=== PATIENT | male | born 1975 | race Two or more races ===

== ENCOUNTER 2016-10-07 22:22 | Inpatient (IN) | payer MEDICAID, OTHER ==
[2016-10-07] MEDS ORDERED: IOPAMIDOL 370 (76%) 100 ML VIAL IV ONE (22:23)
[2016-10-08 00:37] LABS: ABSOLUTE NEUTROPHIL COUNT 6.8 K/mm3 (1.8-7.7); BASO % 0.4 % (0.2-1.0); EOS # 0.1 (0.0-0.5); EOS % 1.1 % (0.9-2.9); HEMATOCRIT 39.3 % (32.0-52.0); HEMOGLOBIN 13.7 gm/l (14.0-18.0); IMM NEUT% 0.3 % (0-1); LYMPH # 2.5 (1.0-4.8); LYMPH % 22.4 % (15-45); MEAN CORPUSCULAR HEMOGLOBIN 31.7 pg (27.0-31.0); MEAN CORPUSCULAR HGB CONC 34.9 g/dl (33.0-37.0); MEAN PLATELET VOLUME 9.1 fl (7.4-10.4); MONO # 1.7 (0.0-0.8); MONO % 15.4 % (4-12); NEUT % 60.4 % (43-75); PLATELET COUNT 260 K/mm3 (130-400); RED CELL DISTRIBUTION WIDTH 12.1 % (11.5-14.5)
[2016-10-08 00:40] LABS: SPECIFIC GRAVITY 1.025 (1.001-1.030); URINE BILIRUBIN NEGATIVE (NEGATIVE); URINE BLOOD TRACE (NEGATIVE); URINE GLUCOSE (UA) NEGATIVE (NEGATIVE); URINE LEUKOCYTE ESTERASE NEGATIVE (NEGATIVE); URINE NITRITE NEGATIVE (NEGATIVE); URINE PROTEIN 1+ (NEGATIVE); URINE UROBILINOGEN 1 mg/dL (0-1 mg/dl)
[2016-10-08 00:42] LABS: URINE APPEARANCE CLEAR; URINE COLOR DARK YELLOW
[2016-10-08 01:06] LABS: URINE BACTERIA 0; URINE EPITHELIAL CELLS 0-1 /hpf; URINE WBC 0-1 /hpf
[2016-10-08 01:08] LABS: ALB/GLOB RATIO 1.1 (>1.0); ALBUMIN 3.9 gm/dL (3.5-5.7); CALCIUM 8.7 mg/dL (8.6-10.3)
[2016-10-08] MEDS ORDERED: ONDANSETRON 4 MG/2ML 2 ML VIAL ONE (01:23)
[2016-10-08] MEDS ORDERED: ACETAMINOPHEN 500 MG TABLET ONE (02:23)
[2016-10-08] MEDS ORDERED: SODIUM CHLORIDE 0.9% 2,000 ML ONE (02:23)
[2016-10-08] MEDS ORDERED: SODIUM CL FOR INHALATION 3 ML DOSE ONE (02:34)
[2016-10-08] MEDS ORDERED: MAGNESIUM HYDROXIDE 30 ML UDCUP PO PRN (03:42)
[2016-10-08] MEDS ORDERED: ACETAMINOPHEN 325 MG TABLET PO PRN (03:42)
[2016-10-08] MEDS ORDERED: MENTHOL/CETYLPYRD 1 EACH LOZENGE PO PRN (03:42)
[2016-10-08] MEDS ORDERED: BLISTEX LIPSTICK 1 EACH TP PRN (03:42)
[2016-10-08] MEDS ORDERED: ALBUTEROL NEB 2.5 MG/3 ML VIAL.NEB NEB PRN (03:46)
[2016-10-08 03:48] VITALS: BMI 28.5
[2016-10-08] MEDS: GUAIFENESIN 600 MG TABLET.DR PO SCH ×2 (05:00→20:24)
[2016-10-08] MEDS ORDERED: FLU VACC 2016-17 (36MO-64Y)/PF 60 MCG/0.5 ML SYRINGE IM V ONE (09:00)
--- NOTE | 2016-10-08 09:42 | RAD ---
CHEST - 2 VIEWS COMPARISON: None. HISTORY: Cough for one months. Night sweats. No fever. No hemoptysis. Unknown if the patient has been exposed to tuberculosis. FINDINGS: Views: Frontal and lateral chest Lungs: Normal Heart and vessels: Normal Trachea and bronchi: Normal Mediastinum and manjit: Normal Costophrenic sulci: Normal Chest wall and bones: Normal. Upper abdomen: Surgical clips in the right upper quadrant IMPRESSION: Negative 2 view chest.
--- NOTE | 2016-10-08 10:20 | CT ---
CTA CHEST FOR PE COMPARISON: None HISTORY: Cough for one month. Night sweats. No fever. No hemoptysis. Technique: Intravenous injection 80 mL of Isovue-370. Using a [employer] [address] scanner, following a CT angiogram protocol, images obtained through the thorax. Under concurrent supervision and interpretation, not requiring a separate 3-D workstation, the technologist created 3-D CT angiograms. An automated dose reduction technique was used to minimize patient radiation dose. Dose information: CTDIvol (mGy): 7.70, 66.00, 17.10 DLP(mGycm): 669.00 FINDINGS: Pulmonary arteries and veins: Excellent contrast opacification. No pulmonary embolism. Aorta: Normal Heart and coronary arteries: Normal. Lungs: Minimal subsolid nodules in the lingula. Trachea and bronchi: Normal. Mediastinum and manjit: Normal. Pleura and pericardium: Normal. Chest wall: Normal. Spine: Normal. Upper abdomen:Normal. 3-D CT angiogram: Normal. IMPRESSION: No pulmonary embolism. Minimal subsolid nodules/inflammatory nodules in the lingula. Given the patient's history of a cough for one month and night sweats, evidence of pneumonia. Preliminary report by [facility] radiologist Dawood Rueda M.D. 10/08/2016 at 01:38
[2016-10-08] MEDS ORDERED: PUMP TUBING ONE (12:12)
[2016-10-08] MEDS: SODIUM CHLORIDE 0.9% 100 ML IV PRN (12:26)
[2016-10-08] MEDS: CEFTRIAXONE 1 GRAM DUPLEX 1 G in Premix (D5W) 50 ml 1 EACH IV SCH ×2 (12:26→14:10)
[2016-10-08] MEDS: AZITHROMYCIN 500 MG in SODIUM CHLORIDE 0.9% 250 ML IV SCH (12:44)
--- NOTE | 2016-10-08 13:57 | HP ---
IMAN ESPINOSA [id number] : 1975 DATE OF ADMISSION: October 08, 2016 IDENTIFICATION: Mr. Neal is a 41-year-old with no local physician. Dr. Vo is on emergency room backup call for unassigned patients on the day of admission. CHIEF COMPLAINT: Cough. HISTORY OF PRESENT ILLNESS: Patient reports dry cough for about a month. He is not bringing up sputum or blood but the cough has been very bothersome. He has also had night sweats and fevers. He has not had any weight loss that he is aware of. He was evaluated with a chest CT scan in the emergency department. This showed nodules in the lingula and patient was referred to the hospitalist service to rule out tuberculosis. REVIEW OF SYSTEMS: HEENT: Denies headache, lightheadedness or loss of consciousness. Denies problems with ears, eyes, nose or throat. RESPIRATORY: He has had cough but not really dyspnea. CARDIAC: No chest pain or palpitations. GASTROINTESTINAL: Some reflux, no nausea or vomiting, diarrhea, constipation hematochezia, or melena. GENITOURINARY: No symptoms. MUSCULOSKELETAL: Denies symptoms. CONSTITUTIONAL: Fevers and night sweats. No weight change. MEDICAL HISTORY: None. PAST SURGICAL HISTORY: 1. Appendectomy. 2. Cholecystectomy. ALLERGIES: NONE KNOWN. HOME MEDICATIONS: Not currently taking any prescription medications. HABITS: No tobacco, alcohol or drugs. SOCIAL HISTORY: He grew up in [place], moved to the [facility] in [place]. Lives with his parents in [facility]. He is single and currently unemployed. FAMILY HISTORY: He is not aware of any significant family history. No history that he knows of tuberculosis in family members. PHYSICAL EXAMINATION: GENERAL: This is a well-developed, well-nourished middle aged . He does have frequent dry cough. VITAL SIGNS: Temperature 98.4 degrees Fahrenheit, pulse 80, blood pressure 108/68, respiratory rate 18, oxygen saturation 95% on room air. HEENT: Pupils are equal, round and reactive. Extraocular muscles are intact. Oropharynx is moist. NECK: No adenopathy. CHEST: Clear to auscultation. HEART: Is regular, no murmur. ABDOMEN: Is soft, nontender, normal bowel tones. EXTREMITIES: Good peripheral pulses. No cyanosis, clubbing or edema. NEUROLOGIC: Alert and oriented. No focal deficits. LABORATORY DATA: White blood cell count is 11.3 with 60% neutrophils, hemoglobin and hematocrit 13.7 and 39.3, platelets 260. D-dimer was elevated at 0.59. Venous blood gas lactate 1.4. Sodium 137, potassium 3.7, chloride 103, CO2 23, BUN 13, creatinine 0.6, glucose 101. AST and ALT mildly elevated at 48 and 74. Troponin I less than 0.01. Urinalysis specific gravity 1.025, 1+ protein, trace blood, negative leukocyte esterase. Influenza A and B tests are negative. QuantiFERON gold test is pending. RADIOLOGY: 1. Chest x-ray was negative. 2. CTA of the chest, no pulmonary embolism. Minimal subsolid nodules/inflammatory nodules in the lingula. ASSESSMENT: Mr. Neal is a 41-year-old with persistent cough and fever and night sweats. He has some mildly elevated white blood cell count but does not otherwise have clinical signs of pneumonia but does have concern for tuberculosis. PLAN: 1. Refer to observation on medical/surgical floor. 2. Respiratory isolation. 3. Await QuantiFERON gold result. 4. Daily acid-fast bacilli sputum stain and culture. 5. FULL CODE status. 6. Venous thromboembolism prophylaxis is not indicated. 7. We will treat with albuterol and guaifenesin as needed.
[2016-10-09] MEDS: GUAIFENESIN 600 MG TABLET.DR PO SCH ×2 (08:47→21:22)
[2016-10-09] MEDS: SODIUM CHLORIDE 0.9% 100 ML IV PRN (12:05)
[2016-10-09] MEDS: CEFTRIAXONE 1 GRAM DUPLEX 1 G in Premix (D5W) 50 ml 1 EACH IV SCH ×2 (12:08→13:48)
[2016-10-09] MEDS: AZITHROMYCIN 500 MG in SODIUM CHLORIDE 0.9% 250 ML IV SCH (12:56)
--- NOTE | 2016-10-09 20:14 | PDOC43 ---
- Subjective Chief Complaint: No c/o's. Cough mild and unchanged since admit. Subjective: Denies Shortness of Breath, Denies Chest Pain, Denies Abdominal Pain , Denies Nausea, Denies Vomiting, Denies Fever, Denies Chills - Objective Vital Signs Temperature 98.3 F 10/09/16 19:25 Pulse Rate 90 10/09/16 19:25 Respiratory Rate 20 10/09/16 19:25 Blood Pressure 133/86 10/09/16 19:25 O2 Saturation by Pulse Oximetry 98 10/09/16 19:25 Oxygen Delivery Method Room Air Oxygen Flow Rate 0 Intake and Output 10/08/16 10/09/16 10/10/16 06:59 06:59 06:59 Intake Total 1944 900 Output Total 2024 1500 Balance -80 -600 General: Alert, Oriented x3, Cooperative, No Acute Distress HEENT: Atraumatic Lungs: Clear to Auscultation Bilaterally Cardiovascular: Regular Rate and Rhythm Abdomen: Soft, Normal Bowel Sounds, Non-Distended Extremities: Normal Pulses, No Edema Current Medications: Current meds reviewed in EMR. - Problems: Assessment/Plan (1) CAP (community acquired pneumonia) Status: AcuteAssessment/Plan: Rocephin/Azithro and supportive care. Cx pending. (2) At risk for tuberculosis Status: AcuteAssessment/Plan: No fevers since admit. Awaiting Quantiferon Gold results. Con't daily AFB sputum- all results still pending.
[2016-10-10] MEDS: GUAIFENESIN 600 MG TABLET.DR PO SCH ×2 (08:22→21:21)
[2016-10-10] MEDS: AZITHROMYCIN 500 MG in SODIUM CHLORIDE 0.9% 250 ML IV SCH (12:13)
--- NOTE | 2016-10-10 13:21 | PDOC43 ---
- Subjective Chief Complaint: No c/o's. Cough mild and unchanged since admit. Subjective: Reports Tolerating Diet Well, Denies Shortness of Breath, Denies Fever - Objective Vital Signs Temperature 98.5 F 10/10/16 07:20 Pulse Rate 84 10/10/16 07:20 Respiratory Rate 17 10/10/16 08:28 Blood Pressure 106/70 10/10/16 07:20 O2 Saturation by Pulse Oximetry 95 10/10/16 07:20 Oxygen Delivery Method Room Air Oxygen Flow Rate 0 Intake and Output 10/09/16 10/10/16 10/11/16 06:59 06:59 06:59 Intake Total 1944 1999 Output Total 2024 2199 600 Balance -80 -200 -600 General: Alert, Oriented x3, Cooperative, No Acute Distress HEENT: Mucous membr. moist/pink Lungs: Clear to Auscultation Bilaterally Cardiovascular: Regular Rate and Rhythm Abdomen: Soft, Normal Bowel Sounds, Non-Distended, No Tenderness Extremities: No Edema Current Medications: Current meds reviewed in EMR. - Problems: Assessment/Plan (1) At risk for tuberculosis Status: AcuteAssessment/Plan: No fevers since admit. Awaiting Quantiferon Gold results. Cont. daily AFB sputum- all results still pending. (2) CAP (community acquired pneumonia) Status: AcuteAssessment/Plan: Rocephin/Azithro and supportive care. Cx pending. VTE Prophylaxis: [place] [facility] Disposition: home if/when quantiferin gold test is negative
[2016-10-10] MEDS: CEFTRIAXONE 1 GRAM DUPLEX 1 G in Premix (D5W) 50 ml 1 EACH IV SCH (13:40)
[2016-10-11] MEDS: GUAIFENESIN 600 MG TABLET.DR PO SCH (09:21)
[2016-10-11] MEDS ORDERED: PUMP TUBING ONE (12:34)
[2016-10-11] MEDS: CEFTRIAXONE 1 GRAM DUPLEX 1 G in Premix (D5W) 50 ml 1 EACH IV SCH (12:47)
[2016-10-11] MEDS: SODIUM CHLORIDE 0.9% 100 ML IV PRN (12:47)
[2016-10-11 13:45] LABS: QUANTIFERON GOLD TB Negative (()); TB - NIL -0.047 IU/mL (())
[2016-10-11 14:31] VITALS: BP 114/76
--- NOTE | 2016-10-12 09:16 | DS ---
Madi Donnelly ADMIT DATE: 10/08/2016 DISCHARGE DATE: 10/11/2016 ADMIT DIAGNOSIS: Tuberculosis with cough, fever, night sweats, and mild elevated white blood cell count. DISCHARGE DIAGNOSES: 1. Mild community acquired pneumonia. 2. Negative Interferon Gold QuantiFERON testing for tuberculosis. ADMIT HISTORY AND PHYSICAL: Please see Dr. Mike's note for details. Briefly, Mr. Donnelly is a 41-year-old male with no local physician and no medical history. He presented to the emergency room with a one month history of dry cough, fever, night sweats. There has been no weight loss, no hemoptysis. He was evaluated with a chest CT and it did show lingular nodules. Given his symptoms history there was a concern he may have tuberculosis. It was therefore elected to admit him to the hospitalist service. HOSPITAL COURSE: He was admitted. Given his symptoms and his CT findings we did start him on Rocephin and azithromycin for mild community acquired pneumonia. Testing was sent for QuantiFERON gold as well as daily acid fast sputum. By the day of discharge his QuantiFERON gold came back negative. All acid fast testing was still pending. Throughout his hospitalization he had no fevers and really minimal pulmonary symptoms other than just a mild cough. By the day of discharge he was feeling well with negative tuberculosis testing. It was elected to discharge him home. DISCHARGE MEDICATIONS: Cefdinir 300 mg by mouth twice daily x7 days. DISCHARGE FOLLOW UP: As needed with Dr. Jose Maria Vo. JOB: [id number]
== END 2016-10-11 16:40 | disposition home or self-care (01) | DRG 179 ==
LOC: ED 22:22 → MS 10-08 02:32
PROVIDERS: ADMIT Family Medicine; ATTEND Family Medicine
DX: A15.9 Respiratory tuberculosis unspecified (principal); J18.9 Pneumonia, unspecified organism